=== PATIENT | male | born 1985 | race Caucasian/White ===

== ENCOUNTER → 2019-04-12 | Outpatient (CLI) | payer OTHER | LOC: COL.RAD 12:30 | DX: M25.511 Pain in right shoulder (principal) ==

== ENCOUNTER → 2019-05-06 | Outpatient (CLI) | payer OTHER | LOC: COL.RAD 13:50 | DX: M25.511 Pain in right shoulder (principal) | CPT/HCPCS: J3301; Q9967 ==

== ENCOUNTER 2021-12-15 12:50 | Inpatient (IN) | payer OTHER ==
[~2021-12-15] VITALS: Ht 175.3 cm; Wt 85.5 kg
[2021-12-15 13:14] LABS: BASO % 0.3 % (0.0-2.0); EOS # 0.3 K/mm3 (0.0-0.7); EOS % 2.7 % (0.0-4.0); GRAN # 8.2 K/mm3 (1.4-6.5); GRAN % 68.4 % (42.2-75.2); HEMATOCRIT 41.9 % (42.0-52.0); HEMOGLOBIN 13.7 g/dl (13.5-18.0); LYMPH # 2.5 K/mm3 (1.2-3.4); LYMPH % 20.6 % (20.0-51.0); MEAN CELL VOLUME 88 fl (80.0-100.0); MEAN CORPUSCULAR HEMOGLOBIN 29 pg (27-31); MEAN CORPUSCULAR HGB CONC 33 g/dl (33.0-37.0); MEAN PLATELET VOLUME 10.4 fl (7.4-10.4); MONO # 0.9 K/mm3 (0.1-0.6); MONO % 7.8 % (1.7-9.3); PLATELET COUNT 225 K/mm3 (130-400); RED BLOOD COUNT 4.78 M/mm3 (4.20-5.60); REDCELL DISTRIBUTION WIDTH-CV 12.1 % (11.5-14.5)
[2021-12-15 13:31] LABS: ALANINE AMINOTRANSFERASE 17 U/L (0-55); ALBUMIN 3.8 gm/dL (3.5-5.0); ALKALINE PHOSPHATASE 109 U/L (40-150); ANION GAP 10 mmol/L (7-16); AST,SGOT 17 U/L (5-34); BILIRUBIN,TOTAL 0.4 mg/dL (0.2-1.2); BLOOD UREA NITROGEN 18 mg/dL (9-21); CALCIUM 8.8 mg/dL (8.4-10.2); CARBON DIOXIDE 26 mmol/L (22-29); CHLORIDE 105 mmol/L (98-107); CREATININE, serum 0.89 mg/dL (0.72-1.25); GLUCOSE 104 mg/dL (70-99); POTASSIUM 4.1 mmol/L (3.5-4.5); SODIUM 141 mmol/L (136-145); TOTAL PROTEIN 7.2 gm/dL (6.2-8.1)
[2021-12-15 13:39] LABS: TROPONIN-I < 0.010 ng/mL (0.00-0.033)
--- NOTE | 2021-12-15 15:55 | NUR ---
Arrived to room 351 via wheelchair from ED. Oriented to room/policy. Admission assessment complete. A&Ox4.
[2021-12-15 15:59] VITALS: BP 129/91; PULSE 77; TEMP 97.3
--- NOTE | 2021-12-15 16:04 | NUR ---
Dr Weston at bedside to see patient.
--- NOTE | 2021-12-15 16:30 | NUR ---
Patient c/o pain to chest with breathing-rating pain 10/10 on pain scale-described as sharp. Oxycodone/tylenol given per dr order.
[2021-12-15 20:01] VITALS: BP 137/70; PULSE 86; TEMP 98.3
[2021-12-15 23:42] VITALS: BP 126/73; PULSE 85; TEMP 99.3
[2021-12-16] VITALS (894 sets, daily range): BP systolic 108–140; BP diastolic 67–82; PULSE 81–101; TEMP 98.1–99.8; O2SAT 93–100
--- NOTE | 2021-12-16 01:33 | NUR ---
Pt alert and oriented. Follows commands. Pt is very anxious this evening, and continuously reports left-sided chest pain/pressure. Reports that the pain is a "stabbing" with "pressure that radiates to my back". Pt is breathing shallow, because it is painful to breathe deep. Pt is satting 98%-99% on room air. Pt had been recieving prn roxicodone or prn tylenol for pain. Pt reported to me earlier this evening that those pain medications "do not touch me". Reported that when he had his shoulder surgeries dilauded was the only pain medication that helped. Notified the provider TERRANCE Carlson and the pt was ordered prn 0.25 mg dilauded q2hr. Pt continued to report "worsening chest pain since I have arrived". Pt and pt's family member reported concern whether or not this was normal and have aksed multiple times. Educated pt that his oxygen levels are WNL and that we are continuously monitoring his VS and HR/rythym. Pt still satting at 98%-99% on room air. Notified provider again, and got a verbal phone order readback to d/c 0.25 mg dilauded q2hr and to place a new order for 0.5 mg dilauded q2hr. I had just administered 0.25mg at 0000 and the provider gave a verbal phone order to administer another 0.25 mg once now, to make 0.5 mg total. Notified e-pharmacy. E-pharmacy notified me that there is a connection/communication issue between the pyxis and the pharmacy. When asked what I should do, the e-pharmacist recommended to override at this time. 0.25 mg of dilauded was overrided and wasted with a second nurse present. Pt also requested that he be placed on IV fluids because he was feeling dehydrated and that it was "too painful to swallow". Notified provider and NS at 75ml/hr was ordered. Shift assessment performed. Medications administered per orders and education provided. VS currently stable, satting 98%-99% on room air. NSR. BP stable. Pt is having much difficulty resting. Has moved from the bed to the chair and back to the bed with no relief of the chest pain/pressure from breathing. Provider is aware. Pt is tolerating PO. Denies nausea/vomiting. Lung sounds are diminished and air movement sounds poor. Respirations are shallow d/t pain. Pt continues to report pain, but does not report any other concerns at this time. Will continue to monitor.
--- NOTE | 2021-12-16 02:42 | NUR ---
Pt called out multiple more times within the last 1-2 hours and family member at bedside has come out to speak with me regarding the pt's situation. Pt recieved a dose of 0.5 mg total of IV dilauded at 0100. Around 0200 the pt report no relief and that the pain has been "getting worse". Pt continues to be very anxious. States he cannot lay back in bed because of the pain. Pt is sitting up on the side of the bed and is crying and is unable to sit back. Assesseed VS. VS stable. Oxygen remained at 98% on room air. Tempterature was 99.5, so prn tylenol was administered. Pt's also reported to me that the pt was nauseasted, so prn zofran was administered. Notified the provider who came and saw the pt at bedside. Provider put the following orders in: 1. 15 mg toradol IV once now. 2. Chest xray 1 view now 3. Stat EKG 4. Troponin 1 lab now. Administered toradol per orders. Pt continues to sit up on the side of the bed, unable to lay back and appears to be anxious still. I educated the pt and pt's family on the new orders placed and that we are continuing to monitor the pt. No other changes at this time, or concerns from the pt, will continue to monitor.
--- NOTE | 2021-12-16 03:11 | NUR ---
Given a verbal order phone readback to administer 0.5mg IV now once for anxiety. Order placed per provider and will administer per orders.
--- NOTE | 2021-12-16 06:50 | NUR ---
Pt resting with eyes closed, even non labored breathing.
--- NOTE | 2021-12-16 07:19 | NUR ---
Pt began screaming in pain around 5615-4526. Pt reported he "couldn't breathe", "could not take the pain anymore", "wanted to be put asleep", "needed help". Assessed pt's o2 levels, he was on 98% on room air. I put the pt on 2L NC to help with breathing. Pt continued to scream in pain. Prn dilauded previosuly at 0500 with no relief. Notified TERRANCE Carlson and was given a verbal phone order to give prn roxicodone shortly after. Around 0617-0602 was when the pt began to scream out and very extremely anxious. 2L was applied, though oxyegn levels were 96%-98% on room air. I notified the provider who ordered to give IV 0.5 mg ativan once now. Pt had no relief and continued to yell. stranding supervisor was notified and present at bedside. Notified the provider again and 4mg IV morphine x1 now was ordered and administered. A stat CT scan was also ordered. House superviosr and I wheeled the pt down. Pt was hardly able to stand and move into chair and continued to yell in pain. Pt was also barely able to lay flat in CT and sit still. Pt was extremely anxious and continued to yell "I can't breathe", though he was satting WNL. Pt was brought back to his room from the CT. I re-connected the pt back to IV fluids and pt was sitting up on the side of the bed leaning on the bedside table. Pt continued to yell. who was at bedside went into the hallway and began to cry. Educated patient and family on medications being administered and why. Provider also ordered for 1,000 mg tylenol to be given now and to apply 2 4% lidocaine patches to the affected painful area. Pt states that the left side of his chest, left collar bone, and left lower back are the painful areas. Stated that he felt like he did not have a lung on the left side and that "I can't take this anymore, I want to be put out". stranding supervisor and I attemped to calm patient multiple times, with no relief. Patches were applied. Ordered voltaren gel was unavailable in the pharmacy, was advised by warehouse traffic supervisor to call pharmacy at 0700 to get the gel. Pt seemed to be drowsy, but was alert and unable to relax. Pt was restless all night and had little no relief with the interventions we provided. Pt's VS remained stable throughout the night and pt did not appear to be in respiratory distress. Pt did state he was nauseated as well, so prn zofran was administered x1. Pt is now finally resting at 0734. VS still stable and pt has taken off his oxygen. Will continue to monitor.
--- NOTE | 2021-12-16 07:20 | NUR ---
Pts came out to the desk stating that pt was starting to move a little in bed, but appeared to still be sleeping. Asked about getting him something for pain before he woke up completely. Stated I would look through medication, but could not give anything prior to him waking up as he did have several different medications over the last couple of hours.
--- NOTE | 2021-12-16 08:20 | NUR ---
Pt did wake and was thrashing around in the bed shortly after she returned to the room. Pt is not able to have a conversation due to the shortness of breath and pain that he is having. Pt keeps repeating simple words. Help me, hurts, spasms, etc. Pt only way to describe his pain is spasms and that his lung feels like it is going to break. Notified Dr Iglesias of pt condition as well as warehouse coordinator. VSS and pain medication given. Pt not able to relax at all and it taking very rapid shallow breaths. He did not feel that he could take any medication this morning as the brief time it takes to hold his breath to swallow it too much for him. Pt is arched back in bed with HOB up, unable to lay flat. Pts is at bedside with him.
--- NOTE | 2021-12-16 09:00 | NUR ---
Arrived to the unit from the medical floor. Alert and in distress upon arrival. Patient appears extremely anxious. Unable to converse coherently and unable to follow directions due to pain and severe anxiety. Patient stating repeatedly "help me help me" "it hurts so bad" "do something for me". Reports that his chest hurts and describes it as a sharp cramping pain. Attached to all monitors; VS stable and pain and anxiety medication administered. After approximatly 15 min patient was observed resting in bed with eyes shut. Call light left within reach. at bedside .
--- NOTE | 2021-12-16 09:00 | NUR ---
Report was called to Sayda GILBERT in ICU and pt transferred to ICU 1. Pt escorted down by PCT shortly after.
[2021-12-16 09:49] LABS: PARTIAL THROMBOPLASTIN TIME 32.4 SECONDS (26.0-37.0)
--- NOTE | 2021-12-16 10:45 | NUR ---
Patient transferred down to ICU from Medical. Patient being seen by [facility] and lab in room when SW arrived in ICU. RN advised it may be better for SW to follow up for intake tomorrow.
[2021-12-16] MEDS ORDERED: TYLENOL 500MG500 MG PO (12:51)
[2021-12-16] MEDS ORDERED: ADVIL200 MG PO (12:52)
[2021-12-16 16:10] LABS: INR 1.2 (0.8-3.0); PROTHROMBIN TIME 14.2 SECONDS (9.7-12.8)
--- NOTE | 2021-12-16 18:04 | NUR ---
Current pain and anxiety medication regime has been mostly effective at controlling pain, although he continues to have intermittent bouts of chest pain and anxiety. Patient becomes very anxious when pain levels are elevated. Family at bedside to help assist in keeping patient calm and this nurse has encouraged patient to focus on deep slow breaths to slow down respiratory rate. Currently resting quietly in bed with eyes shut.
--- NOTE | 2021-12-16 19:30 | NUR ---
Report received from VLADIMIR Alfredo. Patient in bed in obvious discomfort. Respirations are shallow and tachypneic; patient appears anxious. , Thea, at bedside. Patient states, "I can't breathe," repeatedly. All vitals within normal limits. He is receiving 2L oxygen via nasal cannula. Lung sounds diminished throughout. Pain medication administered. Patient continues to receive heparin and precedex drips, see IV drip titrations.
[2021-12-17] VITALS (1256 sets, daily range): BP systolic 99–123; BP diastolic 60–77; PULSE 70–85; TEMP 98–100.6; O2SAT 81–100
--- NOTE | 2021-12-17 | NUR ---
Patient resting quietly in bed. States his pain levels have improved from beginning of NOC shift. Vitals continue to be within normal limits.
--- NOTE | 2021-12-17 04:00 | NUR ---
Patient's anxiety improved; beginning to titrate precedex down.
[2021-12-17 05:03] LABS: BASO % 0.2 % (0.0-2.0); EOS # 0.1 K/mm3 (0.0-0.7); EOS % 0.4 % (0.0-4.0); GRAN # 9.7 K/mm3 (1.4-6.5); GRAN % 72.2 % (42.2-75.2); LYMPH # 2.4 K/mm3 (1.2-3.4); LYMPH % 18.1 % (20.0-51.0); MEAN CELL VOLUME 89 fl (80.0-100.0); MEAN CORPUSCULAR HGB CONC 33 g/dl (33.0-37.0); MEAN PLATELET VOLUME 11.5 fl (7.4-10.4); MONO # 1.2 K/mm3 (0.1-0.6); MONO % 8.7 % (1.7-9.3); PLATELET COUNT 179 K/mm3 (130-400); RED BLOOD COUNT 3.92 M/mm3 (4.20-5.60); REDCELL DISTRIBUTION WIDTH-CV 11.9 % (11.5-14.5)
[2021-12-17 05:11] LABS: HEMATOCRIT 34.7 % (42.0-52.0); MEAN CORPUSCULAR HEMOGLOBIN 29 pg (27-31)
[2021-12-17 05:12] LABS: HEMOGLOBIN 11.4 g/dl (13.5-18.0)
[2021-12-17 05:19] LABS: CALCIUM 8.3 mg/dL (8.4-10.2); CREATININE, serum 0.71 mg/dL (0.72-1.25); POTASSIUM 4.2 mmol/L (3.5-4.5)
--- NOTE | 2021-12-17 07:00 | NUR ---
BEDSIDE REPORT RECEIVED FROM VLADIMIR COATS. PT APPEARS TO BE SLEEPING AT THIS TIME. PT WEARS NC AT 2L. NO S/S DISCOMFORT AT THIS TIME. PRECEDEX AND HEPARIN INFUSING. SEE GTT FLOW SHEET. 20G PIV TO RIGHT AC.
--- NOTE | 2021-12-17 07:15 | NUR ---
Report given to VLADIMIR Woodall.
--- NOTE | 2021-12-17 13:39 | NUR ---
Health Program Specialist met with patient and patient's , Thea (ph#[phone]) to complete initial intake. Patient lives in [place] with his and goes to the [facility] for primary care and medications. Patient also uses [facility] for any medications he needs quickly. Patient does not use any DME and is independent with ADLS. Patient does not have Advance Directives and his , Thea is his legal next lof kin. After SW explained that legal next of kin would be patient's decision maker if patient was unable, patient did not feel it necessary to complete DPOA-HC as he would want his to make his decisions. Patient plans to return home at time of discharge and has no questions for SW at this time. Discharge Plan: Home
--- NOTE | 2021-12-17 19:30 | NUR ---
Received report from VLADIMIR Woodall.
--- NOTE | 2021-12-17 20:00 | NUR ---
Patient resting in bed. Respirations shallow and tachypneic, reports chest pain 12/22. PRN morphine administered at approximately 1930. Patient's and mother in law at bedside. Aware of pending transfer to [facility]. All vitals within normal limits. Continues to receive heparin and precedex drips, see IV drip titrations.
--- NOTE | 2021-12-17 21:18 | NUR ---
Patient departs unit with EMS at this time.
--- NOTE | 2021-12-17 21:35 | NUR ---
Report called to receiving nurse at [facility].
[2021-12-18 15:56] LABS: FACTOR V 103 % (70-120)
[2021-12-18 23:46] LABS: CARDIOLIPIN IGG ANTIBODY <20.0 CU (<=20.0)
[2021-12-18 23:48] LABS: BETA-2 GPI IGG AABS <20.0 CU (<=20.0); BETA-2 GPI IGM AABS <20.0 CU (<=20.0)
[2021-12-19 01:01] LABS: CARDIOLIPIN IGM ANTIBODY <20.0 CU (<=20.0)
[2021-12-20 09:39] LABS: ANTI-THROMBIN III 43 % (72-128)
== END 2021-12-17 21:18 | disposition short-term general hospital (02) | DRG 176 ==
LOC: COL.ER 12:50 → MEDICAL 15:04 → ICU 15:04 → MEDICAL 15:04 → ICU 12-16 09:01
PROVIDERS: Emergency Medicine; Student in an Organized Health Care Education/Training Program; ADMIT Internal Medicine
DX: I26.99 Other pulmonary embolism without acute cor pulmonale (principal); D68.59 Other primary thrombophilia; Z20.822 Contact with and (suspected) exposure to COVID-19; F41.9 Anxiety disorder, unspecified; R25.2 Cramp and spasm; Z87.891 Personal history of nicotine dependence; Z23 Encounter for immunization
CPT/HCPCS: OP; 99239; A9284; G0378; J1170; J1644; J1650; J1885; J2060; J2270; J2405; J7030; Q9967

== ENCOUNTER 2021-12-25 21:42 | Emergency (ER) | payer OTHER ==
[~2021-12-25] VITALS: Ht 175.3 cm; Wt 81.8 kg
[~2021-12-25 21:42] MED LIST: ADVIL200 MG PO; TYLENOL 500MG500 MG PO
[2021-12-25 21:47] VITALS: BP 128/63; TEMP 97.5
[2021-12-25 23:37] VITALS: PULSE 88
== END 2021-12-25 23:37 | disposition home or self-care (01) ==
LOC: COL.ER 21:42
DX: G89.29 Other chronic pain (principal); Z86.718 Personal history of other venous thrombosis and embolism; Z79.01 Long term (current) use of anticoagulants
CPT/HCPCS: J1170